=== PATIENT | female | born 1965 | race Caucasian/White ===

== ENCOUNTER → 2017-05-31 | Emergency (ER) | payer OTHER ==
[~2017-05-31] VITALS: Ht 154.9 cm; Wt 83.9 kg
[~2017-05-31] MED LIST: AMOX1TAB12 PO; BUMETANIDE1 MG PO; BYSTOLIC5 MG; BYSTOLIC5 MG PO; DICLOFENAC POTA50 MG PO; KETO10TA2 PO; NASONEB NASAL1 EACH NASAL; NEURONTIN300 MG; NORVASC5 MG; NORVASC5 MG PO; ORPH100T PO; PERCOCET 5-3251 EACH PO; TAMOXIFEN CITRA20 MG; TAMOXIFEN CITRA20 MG PO; TRAMADOL HCL7.5 GM; ULTRAM50 MG PO
== END | disposition home or self-care (01) ==
LOC: ER 02:40
DX: M25.511 Pain in right shoulder (principal)

== ENCOUNTER 2017-10-17 20:53 | Emergency (ER) | payer OTHER ==
[~2017-10-17] VITALS: Ht 154.9 cm; Wt 83.9 kg
== END 2017-10-18 00:59 | disposition home or self-care (01) ==
LOC: ER 20:53
DX: B02.9 Zoster without complications (principal)

== ENCOUNTER → 2018-02-23 | Emergency (ER) | payer OTHER ==
[~2018-02-23] VITALS: Ht 154.9 cm; Wt 80.7 kg
[~2018-02-23] MED LIST changes: +BENADRYL25 MG PO; +LOTRISONE CREAM45 GM TOP; +MEDROL4 MG PO
== END | disposition home or self-care (01) ==
LOC: ER 01:55
DX: L23.9 Allergic contact dermatitis, unspecified cause (principal)

== ENCOUNTER 2021-12-07 19:47 | Emergency (ER) | payer OTHER ==
[~2021-12-07] VITALS: Ht 154.9 cm; Wt 78.0 kg
[2021-12-07] MEDS ORDERED: LISINOPRIL5 MG PO (20:13)
[2021-12-07] MEDS ORDERED: RESTORIL30 MG PO (20:13)
[2021-12-07] MEDS ORDERED: SIMVASTATIN40 MG PO (20:13)
[2021-12-07] MEDS ORDERED: HYDROXYCHLOROQ200 MG PO (20:14)
[2021-12-07] MEDS ORDERED: BUPROPION XL300 MG PO (20:14)
[2021-12-07] MEDS ORDERED: BACTRIM DS TAB1 EACH PO (20:57)
[2021-12-07] MEDS ORDERED: DICLOFENAC SODI75 MG PO (20:57)
== END 2021-12-07 21:24 | disposition home or self-care (01) ==
LOC: ER 19:47
DX: N61.0 Mastitis without abscess (principal)

== ENCOUNTER 2022-08-12 00:50 | Emergency (ER) | payer OTHER ==
[~2022-08-12] VITALS: Ht 154.9 cm; Wt 73.9 kg
[~2022-08-12 00:50] MED LIST changes: +BACTRIM DS TAB1 EACH PO; +BUPROPION XL300 MG PO; +DICLOFENAC SODI75 MG PO; +HYDROXYCHLOROQ200 MG PO; +LISINOPRIL5 MG PO; +RESTORIL30 MG PO; +SIMVASTATIN40 MG PO
[2022-08-12] MEDS ORDERED: NORFLEX100MG PO (03:02)
[2022-08-12] MEDS ORDERED: NABUMETONE750 MG PO (03:02)
== END 2022-08-12 03:04 ==
LOC: ER 00:50
DX: S79.812A Other specified injuries of left hip, initial encounter (principal); W18.39XA Other fall on same level, initial encounter; Y93.89 Activity, other specified; Y92.012 Bathroom of single-family (private) house as the place of occurrence of the external cause; S79.822A Other specified injuries of left thigh, initial encounter; S39.82XA Other specified injuries of lower back, initial encounter; E11.9 Type 2 diabetes mellitus without complications; I10 Essential (primary) hypertension

== ENCOUNTER 2022-12-20 17:06 | Emergency (ER) | payer OTHER ==
[~2022-12-20] VITALS: Ht 154.9 cm; Wt 73.9 kg
[~2022-12-20 17:06] MED LIST changes: +NABUMETONE750 MG PO; +NORFLEX100MG PO
== END 2022-12-20 18:56 | disposition home or self-care (01) ==
LOC: ER 17:06
DX: L03.012 Cellulitis of left finger (principal); I10 Essential (primary) hypertension
CPT/HCPCS: 96372; 99284; J0690; J1885

== ENCOUNTER 2022-12-24 21:03 | Inpatient (IN) | payer OTHER ==
[~2022-12-24] VITALS: Ht 154.9 cm; Wt 73.9 kg
--- NOTE | 2022-12-24 21:17 | NUR ---
SE RECIBE PTE ALERTA Y ORIENTADA X3 LA CUAL REFIERE VENIR POR CELULITIS EN MANO DERECHA. SE OBSERVA MANO INFLAMADA Y CECILY. PTE REFIERE ESTAR TOMANDO CLEOCIN 300MG PO Q8HRS DESDE EL FIN DE SEMANA. SE MIDEN S/V Y SE COLOCA EN VIKTOR DE ESPERA.
--- NOTE | 2022-12-25 00:52 | NUR ---
PTE EVALUADA POR QUIEN INDICA TX, PTE REFIERE ENTENDER Y ACEPTAR, SE KIM MUESTRAS DE LABORATORIO Y SE ADMINISTRAN MEDICAMENTOS ANTWAN ORDEN MEDICA Y SIGUIENDO MEDIDAS ASEPTICAS.
--- NOTE | 2022-12-25 07:30 | NUR ---
SE RECIEB PTE LAERTA Y EN JUHI CON BARANDAS ELEVADAS POR CHARLTON SEGURIDAD. PENDIENTE A CONSULTA CON DR. MOREL. VENOPUNCION PATENTE
[2022-12-26] MEDS ORDERED: ANASTROZOLE1 MG (14:41)
[2022-12-26] MEDS ORDERED: TRIJARDY XR 101 EACH (14:41)
[2022-12-26] MEDS ORDERED: CELECOXIB200 MG (14:42)
[2022-12-26] MEDS ORDERED: METHOTREXATE2.5 MG (14:42)
[2022-12-26] MEDS ORDERED: AMITRIPTYLINE H25 MG (14:42)
[2022-12-26] MEDS ORDERED: HYDROXYCHLOROQ200 MG (14:42)
[2022-12-26] MEDS ORDERED: GABAPENTIN600 MG (14:42)
[2022-12-26] MEDS ORDERED: BUPROPION XL300 MG (14:42)
[2022-12-26] MEDS ORDERED: FENOFIBRATE160 MG (14:42)
== END 2023-01-01 12:14 | disposition home or self-care (01) | DRG 603 ==
LOC: ER 21:03 → SEC-K 12-25 09:46 → MEDI 12-25 09:46
PROVIDERS: General Practice; Internal Medicine; Orthopaedic Surgery Hand Surgery; ADMIT Internal Medicine; ATTEND Internal Medicine
PROC: BP4NZZZ Ultrasonography of Right Hand (ICD-10-PCS; 2022-12-25)
PROC: BP3CZZZ Magnetic Resonance Imaging (MRI) of Right Hand/Finger Joint (ICD-10-PCS; 2022-12-26)
PROC: 0H9FXZZ Drainage of Right Hand Skin, External Approach (ICD-10-PCS; principal; 2022-12-27 18:00)
DX: L03.113 Cellulitis of right upper limb (principal); B95.8 Unspecified staphylococcus as the cause of diseases classified elsewhere; E11.9 Type 2 diabetes mellitus without complications; F41.9 Anxiety disorder, unspecified; I10 Essential (primary) hypertension; Z79.4 Long term (current) use of insulin
CPT/HCPCS: 73223